=== PATIENT | female | born 1980 | race Caucasian/White ===

== ENCOUNTER 2019-08-20 05:35 | Day surgery (SDC) | payer OTHER, SELFPAY ==
[~2019-08-20] VITALS: Ht 162.6 cm; Wt 74.4 kg
[2019-08-20] MEDS ORDERED: ONDANSETRON HCL 4 MG/2 ML VIAL IVP PRN ×2 (07:15→09:15)
[2019-08-20] MEDS ORDERED: HYDROmorphone 1 MG INJ. 1 MG/ML AMPUL IVP PRN ×2 (07:15)
[2019-08-20] MEDS ORDERED: SEVOFLURANE 15 MIN GAS INH ONE (09:19)
[2019-08-20] MEDS ORDERED: fentaNYL CITRATE/PF 100 MCG/2 ML AMP ONE (09:19)
[2019-08-20] MEDS ORDERED: DEXAMETHASONE SOD PHOSPHATE 4 MG/ML VIAL ONE (09:19)
[2019-08-20] MEDS ORDERED: PROPOFOL 200MG/ 20ML VIAL (DIPRIVAN) IV ONE (09:19)
[2019-08-20] MEDS ORDERED: NS IRRIG SOLN 1000 ML IR ONE (09:19)
[2019-08-20] MEDS ORDERED: ROCURONIUM BROMIDE 10 MG/ML (ZEMURON) ONE (09:19)
[2019-08-20] MEDS ORDERED: LR 1,000 ML IV.SOLN IV ONE (09:19)
[2019-08-20] MEDS ORDERED: KETOROLAC TROMETHAMINE 30 MG VIAL ONE (09:19)
[2019-08-20] MEDS ORDERED: ONDANSETRON HCL 4 MG/2 ML VIAL ONE (09:19)
[2019-08-20] MEDS ORDERED: SUGAMMADEX SODIUM 200 MG/2 ML VIAL IV ONE (09:19)
[2019-08-20] MEDS ORDERED: HYDROmorphone 1 MG INJ. 1 MG/ML AMPUL ONE ×2 (09:39→10:28)
[2019-08-20] MEDS ORDERED: OXYCODONE/ACETAMINOPHEN 5-325 TABLET ONE (12:22)
[2019-08-20] MEDS ORDERED: KETOROLAC TROMETHAMINE 30 MG VIAL IVP ONE (13:30)
[2019-08-20] MEDS ORDERED: OXYCODONE/ACETAMINOPHEN 5-325 TABLET PO ONE (13:30)
[2019-08-20] MEDS ORDERED: IBUPROFEN 800 MG TABLET PO ONE (14:00)
[2019-08-20 16:17] VITALS: BP_SYST 130
== END 2019-08-20 15:15 | disposition home or self-care (01) ==
LOC: SDS 05:35 → SMU 05:35 → SDS 15:15
DX: Z30.2 Encounter for sterilization (principal); N80.3 Endometriosis of pelvic peritoneum; K66.0 Peritoneal adhesions (postprocedural) (postinfection); Z79.899 Other long term (current) drug therapy
CPT/HCPCS: 36415; 58301; 58662; 84703; 86886; 86900; 86901; 88300; 88302; 88305; C1727; C9399; J1100; J1170; J1885; J2405; J2704; J3010; J7120; U0003